=== PATIENT | male | born 1990 ===

== ENCOUNTER 2016-06-19 00:22 | Emergency (ER) | payer SELFPAY ==
[2016-06-19 00:32] VITALS: BP 141/86; PULSE 92; RESP 18; TEMP 98.1; O2SAT 99
[2016-06-19] MEDS ORDERED: Oxycodone/Acetaminophen 5/325 mg Tab PO STA (00:50)
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
[2016-06-19] MEDS ORDERED: Oxycodone/Acetaminophen 5/325 mg Tab ONE (01:19)
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
== END 2016-06-19 02:42 | disposition home or self-care (01) ==
LOC: H.ER 00:22
DX: S02.2XXA Fracture of nasal bones, initial encounter for closed fracture (principal); Y04.0XXA Assault by unarmed brawl or fight, initial encounter